=== PATIENT | male | born 1975 | race Caucasian/White ===

== ENCOUNTER 2016-10-16 16:57 | Emergency (ER) | payer BC, OTHER ==
--- NOTE | 2016-10-16 17:35 | EDM.PDOC ---
ED HPI GENERAL MEDICAL PROBLEM - General Chief Complaint: Lower Extremity Injury/Pain Stated Complaint: PAIN/SWOLLEN RT LEG Time Seen by Provider: 10/16/16 16:59 Source of Information: Reports: Patient History Limitations: Reports: No limitations - History of Present Illness INITIAL COMMENTS - FREE TEXT/NARRATIVE: Presents reporting swelling in his right calf. The patient states that yesterday morning he did a workout at the gym heavy on the lower extremities and also tweaked his right ankle a bit. Then he put in a 14 hour work shift. He is right calf was sore during the night but this morning he noticed it was swollen and had has been increasingly tight in his boot today. He denies fever. No recent surgery except a vasectomy on Saturday, October 08, 2016. No recent travel or prolonged sitting. He has never had a blood clot and no known clotting disorders. Right Lower Leg Pain Score (Numeric/FACES): 2 - Related Data Allergies Allergy/AdvReac Type Severity Reaction Status Date / Time No Known Allergies Allergy Verified 10/16/16 17:17 Home Meds: Home Meds . [No Known Home Meds] 10/16/16 [History] Past Medical History - Past Health History Medical/Surgical History: Denies Medical/Surgical History Gastrointestinal History: Reports: GERD - Infectious Disease History Infectious Disease History: Reports: Chicken pox - Past Surgical History Male Surgical History: Reports: Vasectomy Social & Family History - Family History Family Medical History: Noncontributory - Tobacco Use Smoking Status *Q: Current Every Day Smoker Years of Tobacco use: 3 Packs/Tins Daily: 0.5 - Caffeine Use Caffeine Use: Reports: None - Alcohol Use Days Per Week of Alcohol Use: 7 Number of Drinks Per Day: 5 Total Drinks Per Week: 35 - Recreational Drug Use Recreational Drug Use: No Review of Systems - Review of Systems Review Of Systems: ROS reveals no pertinent complaints other than HPI. Trauma Exam - Physical Exam Exam: See Below Exam Limited By: No limitations General Appearance: Reports: alert, no apparent distress Head: Reports: atraumatic, normocephalic Ears: Reports: normal external exam Nose: Reports: normal inspection Throat/Mouth: Reports: Normal inspection Neck: Reports: full range of motion Respiratory Exam: Reports: no respiratory distress, lungs clear, normal breath sounds Cardiovascular: Reports: normal peripheral pulses, regular rate, rhythm, no murmur GI/Abdominal: Reports: Soft Extremities: Other (Right calf markably swollen and tight with pedal and posttibial edema slightly pitting. Tenderness and calor about the post. Anterior calf no erythema) Skin: Reports: Normal color, Warm/dry, Other (Psoriasis) Course - Vital Signs Last Recorded V/S: Last Vital Signs Temp 37.1 C 10/16/16 17:15 Pulse 84 10/16/16 20:18 Resp 18 10/16/16 20:18 BP 124/73 10/16/16 20:18 Pulse Ox 97 10/16/16 20:18 - Orders/Labs/Meds Orders: Active Orders 24 hr Category Date Time Status Ankle Min 3V Rt [CR] Stat Exams 10/16/16 20:02 Ordered Tibia Fibula Rt [CR] Stat Exams 10/16/16 20:01 Ordered Venous Doppler Lwr Ext Rt [US] Stat Exams 10/16/16 17:16 Taken Labs: Laboratory Tests 10/16/16 10/16/16 10/16/16 Range/Units 18:03 18:03 18:03 WBC 9.43 (4.0-11.0) K/uL RBC 4.52 (4.50-5.90) M/uL Hgb 14.3 (13.0-17.0) g/dL Hct 41.4 (38.0-50.0) % MCV 91.6 (80.0-98.0) fL MCH 31.6 (27.0-32.0) pg MCHC 34.5 (31.0-37.0) g/dL RDW Std Deviation 43.8 (28.0-62.0) fl RDW Coeff of [place] 13 (11.0-15.0) % Plt Count 133 L (150-400) K/uL MPV 9.10 (7.40-12.00) fL Neut % (Auto) 65.0 (48.0-80.0) % Lymph % (Auto) 17.3 (16.0-40.0) % [place] % (Auto) 14.5 (0.0-15.0) % Eos % (Auto) 2.9 (0.0-7.0) % Baso % (Auto) 0.3 (0.0-1.5) % Neut # (Auto) 6.1 H (1.4-5.7) K/uL Lymph # (Auto) 1.6 (0.6-2.4) K/uL [place] # (Auto) 1.4 H (0.0-0.8) K/uL Eos # (Auto) 0.3 (0.0-0.7) K/uL Baso # (Auto) 0.0 (0.0-0.1) K/uL Nucleated RBC % 0.0 /100WBC Nucleated RBCs # 0 K/uL Sodium 138 (136-146) mmol/L Potassium 3.9 (3.5-5.1) mmol/L Chloride 107 (98-110) mmol/L Carbon Dioxide 17 L (21-31) mmol/L BUN 9 (6.0-23.0) mg/dL Creatinine 0.8 (0.6-1.5) mg/dL Est Cr Clr Drug Dosing 160.27 mL/min Estimated GFR (MDRD) > 60.0 ml/min Glucose 121 H (60-110) mg/dL Calcium 9.4 (8.8-10.8) mg/dL Total Bilirubin 0.5 (0.1-1.5) mg/dL AST 145 H (5-40) IU/L ALT 168 H (8-54) IU/L Alkaline Phosphatase 98 (40-150) Creatine Kinase 215 (9-236) IU/L Total Protein 8.4 H (6.0-8.0) g/dL Albumin 4.2 (3.5-5.0) g/dL Globulin 4.2 H (2.0-3.5) g/dL Albumin/Globulin Ratio 1.0 L (1.3-2.8) - Re-Assessments/Exams Free Text/Narrative Re-Assessment/Exam: 10/16/162009 Dr. Dent and myself repeat exam and the right Dr. Dent and myself examined the right lower extremity again. The patient was able to dorsiflex and plantar flex the foot without pain. Strong pedal and posttibial pulse and CMS intact distally. Firm swelling in the proximal calf but it is compressible. One plus pitting edema to the lower leg and foot. Departure - Departure Time of Disposition: 21:33 Disposition: Home, Self-Care 01 Clinical Impression: Muscle strain - Discharge Information Referrals: PCP,None [Primary Care Provider] - [facility] [Outside] [facility] [Outside] Forms: ED Department Discharge Additional Instructions: 1. Keep your right leg elevated well above heart level tonight. 2. Cool packs 20 minutes every 3-4 hours guarding against frostbite and did not sleep while the cool pack is on. 3. Voltaran 75mg three times daily as needed for pain 4. Return promptly to the emergency room for cool, pale, foot, increasing pain or swelling. 5. followup in clinic as soon as possible - My Orders Last 24 Hours: My Active Orders 10/16/16 17:16 Venous Doppler Lwr Ext Rt [US] Stat 10/16/16 20:01 Tibia Fibula Rt [CR] Stat 10/16/16 20:02 Ankle Min 3V Rt [CR] Stat - Assessment/Plan Last 24 Hours: My Active Orders 10/16/16 17:16 Venous Doppler Lwr Ext Rt [US] Stat 10/16/16 20:01 Tibia Fibula Rt [CR] Stat 10/16/16 20:02 Ankle Min 3V Rt [CR] Stat
[2016-10-16 18:32] LABS: CHLORIDE,CL 107 mmol/L (98-110); SODIUM,NA 138 mmol/L (136-146)
[2016-10-16 22:02] VITALS: BP 136/69
--- NOTE | 2016-10-17 15:48 | US ---
EXAM DATE: 10/16/16 PATIENT'S AGE: 40 Patient: [facility] Facility: [place], [place] Site . Site : 1975 Study: US Extremity [id number]/9/2017 6:47:14 PM Ordering Physician: Doctor Awad Final Report: INDICATION: Pain and swelling posteriorly. Trauma earlier today. COMPARISON: None. TECHNIQUE: A compression venous ultrasound exam was performed of the right lower extremity using faith scale imaging, color Doppler and spectral Doppler analysis. FINDINGS: Sonographic imaging of the right lower extremity demonstrates normal compressibility and color Doppler venous blood flow within the common femoral vein, deep femoral vein, and the proximal greater saphenous vein. Within the thigh, the femoral vein is patent and compressible. At a lower level, the popliteal and posterior tibial veins also show normal compressibility and color Doppler venous blood flow. Limited imaging of the contralateral groin was not performed. IMPRESSION: Normal venous ultrasound exam. No evidence of deep vein thrombosis within the right lower extremity. Dictated by Naeem Hernandez MD @ 10/16/2016 6:52:01 PM Dictated by: Naeem Hernandez MD @ 10/16/2016 18:52:13 (Electronic Signature) Report Signed by Proxy. KEVIN
--- NOTE | 2016-10-17 15:56 | CR ---
EXAM DATE: 10/16/16 PATIENT'S AGE: 40 Patient: [facility] Facility: [place], [place] Site . Site : 1975 Study: XRay Extremity tib/fib [id number]/9/2017 8:45:32 PM Ordering Physician: Doctor Awad Final Report: INDICATION: Proximal calf pain, swelling. TECHNIQUE: Tibia-fibula radiograph 4 views COMPARISON: None FINDINGS: Bones: Alignment is normal. No acute fractures or aggressive osseous lesions seen. Plantar calcaneal spurring noted. Joint spaces: The visualized knee and ankle joints are unremarkable in appearance. No right knee joint effusion. Soft tissues: Unremarkable. No radiopaque foreign bodies are noted. IMPRESSION: No acute osseous injuries are identified. Dictated by Amilcar Holly MD @ 10/16/2016 9:13:47 PM Dictated by: Amilcar Holly MD @ 10/16/2016 21:13:54 (Electronic Signature) Report Signed by Proxy. KEVIN
== END 2016-10-16 21:57 | disposition home or self-care (01) ==
LOC: MW.ED 16:57
DX: S86.911A Strain of unspecified muscle(s) and tendon(s) at lower leg level, right leg, initial encounter (principal); F17.210 Nicotine dependence, cigarettes, uncomplicated; Z98.52 Vasectomy status; Y93.43 Activity, gymnastics
CPT/HCPCS: 36415; 73590-26-RT; 73590-RT; 80053; 82550; 85025; 93971-26-RT; 93971-RT; 99283; 99284-25